=== PATIENT | female | born 1965 | race Caucasian/White ===

== ENCOUNTER 2019-10-12 14:37 | Outpatient (CLI) | payer BC, SELFPAY ==
--- NOTE | 2019-10-12 14:45 | ECHO_ITS ---
Patient Info Name: Sadie Wiseman Age: 54 years : 1965 Gender: Female Ht: 69 in Wt: 270 lbs BSA: 2.50 m2 HR: 80 bpm BP: 143 / 87 mmHg Technical Quality: Poor Exam Date: 10/12/2019 2:57 PM Exam Location: [facility] Patient Status: Outpatient Admit Date: 10/12/2019 Staff Ordering Physician: Neal Knapp DO Landing Support Specialist: Lucina Chavis RDCS Attending Provider: Neal Knapp DO Referring Physician: Ra SOARES; Exam Type: CA echo doppler color flow Study Info Indications Z87.74 - Personal history of (corrected) congenital malformations of heart and circulatory system Complete two-dimensional, color flow and Doppler transthoracic echocardiogram is performed with contrast to opacify the left ventrical and to improve the deliniation of the left ventrical endocarial boarders. Strain analysis performed. Contrast/Agitated Saline Amount: 10.00 ml IV Access Condition: patent with no signs of infiltration New IV Access: Right Site Condition: No extravasation, IV removed and Site dressing applied History/Risk Factors Hypertension: Yes Dyslipidemia: Yes Congenital Heart Disease (CHD): Yes Myocardial Infarction (TX): No Obesity: Yes Renal Disease: No Coronary Artery Disease (CAD) No Congestive Heart Failure (CHF): Hx CHF Date of Last Tobacco Use: 08/10/2014 Diabetes Mellitus: No COPD: On Meds Tobacco Use: Former Family History: Diabetes Mellitus, Coronary Artery Disease Deep Vein Thrombosis (DVT): Chronic Dialysis: None Frailty Scale (CSHA): 3: Managing Well Cardiac Arrest: No Prior Interventions Pacemaker: No PCI: No CABG: No ICD: No PV Intervention: None Heart Transplant: No Summary 1. Left ventricular chamber dimension is normal. 2. Definity contrast administered did not improve wall motion interpretation. 3. Left ventricular systolic function is normal, estimated at 60-65%. 4. There is moderately increased left ventricular wall thickness. 5. The left ventricular diastolic function is grade I diastolic dysfunction. 6. E/e' 11 is mildly elevated. 7. Left atrial chamber dimension is mildly enlarged. 8. Atrial septal defect occluder visualized by 2D and color flow imaging. No obvious interatrial shunt noted by color doppler. 9. There is moderate pulmonic regurgitation. 10. The aortic root size at the sinus of Valsalva is mildly dilated at 4.3 cm. Left Ventricle E/e' 11 is mildly elevated. Definity contrast administered did not improve wall motion interpretation. Left ventricular chamber dimension is normal. Left ventricular systolic function is normal, estimated at 60-65%. There is moderately increased left ventricular wall thickness. The left ventricular diastolic function is grade I diastolic dysfunction. Right Ventricle Right ventricular chamber dimension is normal. Right ventricular systolic function is normal. Left Atria Left atrial chamber dimension is mildly enlarged. Right Atria Right atrial chamber dimension is normal. Atrial Septum Atrial septal defect occluder visualized by 2D and color flow imaging. No obvious interatrial shunt noted by color doppler. Aortic Valve Cannot determine number of aortic valve leaflets. The aortic valve is not well visualized. There is no aortic valve stenosis. There is no aortic valve regurgitation. Pulmonic Valve There is moderate pulmonic regurgi
== END 2019-10-12 14:38 | disposition home or self-care (01) ==
LOC: CHSIMG 14:40
PROVIDERS: PCP Family Medicine; Visit Provider Internal Medicine Cardiovascular Disease
DX: Z87.74 Personal history of (corrected) congenital malformations of heart and circulatory system (principal)
CPT/HCPCS: C8929

== ENCOUNTER 2020-02-21 07:18 | Outpatient (CLI) | payer BC, SELFPAY ==
--- NOTE | ~2020-02-21 | PE_ITS ---
EXAMINATION: PET skull to mid thigh DATE: 02/21/2020 09:20 INDICATION: Solitary pulmonary nodule. TECHNIQUE: Blood glucose level was 94 mg/dL. 10.911 mCi of 18-fluorodeoxyglucose (18-FDG) was adminis tered i.v. Low dose computed tomography (CT) images were acquired from the base of the brain to the p roximal thighs for attenuation correction and anatomic localization. Automated exposure control was e mployed. Dose-length product (DLP) was 1279 mGy-cm. Positron emission tomography (PET) images were ac quired in the same distribution. COMPARISON: None FINDINGS: Head/neck: There is increased activity in the oral cavity, oropharynx, nasopharynx, and glottis witho ut CT correlate, likely physiologic. There are no pathologically enlarged lymph nodes. Chest: The lungs demonstrate mild atelectasis. No pleural effusion. Cardiomegaly is noted. There are coronary artery calcifications. No pericardial effusion. The central pulmonary arteries are enlarged, consistent with pulmonary arterial hypertension. There are no pathologically enlarged lymph nodes. Abdomen/pelvis/proximal thighs: The liver, gallbladder, spleen, pancreas, adrenal glands, and kidneys are normal. There are no dilated loops of bowel. There are no pathologically enlarged lymph nodes. T here is no free intraperitoneal fluid. There is no osseous malignancy. IMPRESSION: 1. No evidence of malignancy. Reviewed, dictated and finalized at location A.
[2020-02-21 07:51] LABS: Glucose Point of Care 94 (65-105)
== END 2020-02-21 07:19 | disposition home or self-care (01) ==
LOC: ANHIMG 07:19
PROVIDERS: PCP Family Medicine; Visit Provider Internal Medicine Critical Care Medicine
DX: R91.1 Solitary pulmonary nodule (principal)
CPT/HCPCS: 78815; A9552

== ENCOUNTER 2020-02-28 14:22 | Outpatient (CLI) | payer BC, SELFPAY ==
--- NOTE | 2020-03-01 15:02 | WPDPFTINT ---
PFT Interpretation PFT Interpretation: This PFT met all criteria for ATS standards and reproducibility FEV/FVC post bronchodilator 69% of predicted FEV1 70% or 1.83 liters FVC 75% or 2.66 liters FEV1 improved by 13% and 210 ml post bronchodilator TLC 83% or 4.86 liters RV 92% RV/TLC43% DLCO 60% when adjusted for alveolar volume but not adjusted for hemoglobin Flow volume loops showed significant expiratory coving Impression: Moderate airflow obstruction with good response to bronchodilator. Mild decreased diffusion capcity. This pattern fits that of COPD with possible Asthma component. Clinical correlation is advised.
== END 2020-02-28 14:23 | disposition home or self-care (01) ==
PROVIDERS: PCP Family Medicine; Visit Provider Internal Medicine Critical Care Medicine
DX: J44.9 Chronic obstructive pulmonary disease, unspecified (principal)
CPT/HCPCS: 94060; 94726; 94729

== ENCOUNTER 2020-05-17 12:51 | Outpatient (CLI) | payer BC, SELFPAY ==
--- NOTE | 2020-06-19 17:19 | WPDHOLTEREM ---
Holter/Event Monitor Holter/Event Monitor Date of procedure: 05/17/20 Procedure Type: 27 days event monitor Indications: PAF Conclusion: 1. 27 days event monitor between 05/17/20-06/15/20. There are 17 available transmissions for analysis. 2. Underlying rhythm is sinus rhythm. HR range 50-120 bpm; average HR 66 bpm. 3. There are occasional premature supraventricular complexes with total burden of 1%. No supraventricular tachycardia. 4. There are occasional premature ventricular complexes with total burden of 1%. No ventricular tachycardia. 5. No significant pauses greater than 2 seconds. 6. Patient reports 7 episodes of symptoms of lightheadedness, dizziness, shortness of breath, and symptoms other than listed which demonstrate sinus rhythm, HR range 57-75 bpm and 1 PAC and 1 PVC.
== END 2020-05-17 12:52 | disposition home or self-care (01) ==
LOC: CHSCARD 12:54
PROVIDERS: PCP Family Medicine; Visit Provider Internal Medicine Cardiovascular Disease
DX: I48.0 Paroxysmal atrial fibrillation (principal)
CPT/HCPCS: 93270

== ENCOUNTER 2020-10-01 16:09 | Outpatient (CLI) | payer BC, SELFPAY ==
--- NOTE | ~2020-10-01 | CT_ITS ---
EXAMINATION:CT diagnostic chest wo con DATE: 10/01/2020 16:32 INDICATION: Solitary pulmonary nodule. TECHNIQUE: Computed tomography (CT) of the chest was performed without intravenous contrast. Automate d exposure control and iterative reconstruction technique were employed. The dose-length product (DLP ) was 589.68 mGy-cm. COMPARISON: PET CT 02/21/2020 FINDINGS: There is mild emphysema. There is mild atelectasis bilaterally. There is a 5 mm nodule in r ight lower lobe. There is a 4 mm nodule in left lower lobe. No pleural effusion. Cardiomegaly is note d. There is an interatrial closure device. There are coronary artery calcifications. No pericardial e ffusion. The central pulmonary arteries are enlarged, consistent with pulmonary arterial hypertension . There is a 14 mm mass in left adrenal gland measuring low-attenuation, consistent with an adenoma. There is mild thoracic spondylosis. IMPRESSION: 1. Pulmonary nodules measuring up to 5 mm, likely benign. 2. Mild emphysema. 3. Cardiomegaly. Reviewed, dictated and finalized at location A. ITOMETER READER
== END 2020-10-01 16:10 | disposition home or self-care (01) ==
PROVIDERS: PCP Family Medicine; Visit Provider Internal Medicine Critical Care Medicine
DX: R91.1 Solitary pulmonary nodule (principal); J43.9 Emphysema, unspecified; I51.7 Cardiomegaly; R91.8 Other nonspecific abnormal finding of lung field
CPT/HCPCS: 71250

== ENCOUNTER 2022-08-07 08:15 | Outpatient (CLI) | payer BC, SELFPAY ==
--- NOTE | ~2022-08-07 | CT_ITS ---
EXAMINATION: CT diagnostic chest wo con DATE: 08/07/2022 08:31 INDICATION: Pulmonary nodules TECHNIQUE: Computed tomography (CT) of the chest was performed without intravenous contrast. The dose -length product (DLP) was 439.63 mGy-cm. Automated exposure control and iterative reconstruction tech [employer] were employed. COMPARISON: 10/01/2020, 02/21/2020 FINDINGS: There is a stable 5 mm nodule of the right lower lobe. There is stable 4 mm nodule of the l eft lower lobe. There is a new 3.2 x 1.9 cm nonsolid nodule in the medial aspect of the right lower l obe (image 100). No internal solid component is identified. There is mild emphysema. No pleural effus ion or pneumothorax. There is enlargement of the main and central pulmonary arteries, consistent with pulmonary hypertension. No pathologically enlarged thoracic lymph nodes are identified. Cardiomegaly is noted. An intra-atrial closure device is noted. There is calcified coronary artery atherosclerosi s. Subendocardial fat deposition in the left ventricular apex and interventricular septum is consiste nt with prior myocardial infarction. A stable 14 mm mass of the left adrenal gland is consistent with an adenoma. There is mild thoracic spondylosis. IMPRESSION: 1. Stable solid pulmonary nodules, likely benign. 2. Interval development of a non solid nodule of the right lower lobe. Follow-up low-dose CT in six m [facility] is recommended. Reviewed, dictated and finalized at location D. NG FLUID TENDER IMPRESSION: 1. Stable solid pulmonary nodules, likely benign. 2. Interval development of a non solid nodule of the right lower lobe. Follow-u p low-dose CT in six months is recommended.
== END 2022-08-07 08:16 | disposition home or self-care (01) ==
PROVIDERS: PCP Family Medicine; Visit Provider Physician Assistant
DX: R91.8 Other nonspecific abnormal finding of lung field (principal)
CPT/HCPCS: 71250

== ENCOUNTER 2023-02-05 09:23 | Outpatient (CLI) | payer MEDICARE, SELFPAY ==
--- NOTE | ~2023-02-05 | CT_ITS ---
CT Scan of the Chest without Contrast: Clinical Indication: Pulmonary nodules Technique: Contiguous sections were acquired throughout the chest without intravenous contrast. Dose reduction technique was used on this scan by utilizing automated exposure control and iterative recon struction technique. The dose-length product (DLP) was 363.91 mGy-cm. COMPARISON: 08/07/2022 and 10/01/2020 Findings: There is no evidence of any significant mediastinal, hilar or axillary lymphadenopathy. Main pulmonar y artery measures 4.5 cm in diameter. Coronary artery calcifications are present. No aortic aneurysm. There is no evidence of pleural or pericardial effusion. There is probable chronic right middle lobe atelectasis or scarring. Subpleural subcentimeter right l ower lobe pulmonary nodule is unchanged. There is atelectatic change or scarring at the lingula. Images through the upper abdomen reveal no abnormalities. Impression: Chronic atelectasis or scarring at the right middle lobe and lingula. Stable subcentimeter right middle lobe pulmonary nodule. Previously noted groundglass opacity at the medial right lung base is resolved. Reviewed, dictated and finalized at [facility]. Impression: Chronic atelectasis or scarring at the right middle lobe and lingula. Stable subcentimeter right middle lobe pulmonary nodule. Previously noted groundglass opacity at the medial right lung base is resolved.
== END 2023-02-05 09:24 | disposition home or self-care (01) ==
PROVIDERS: PCP Family Medicine; Visit Provider Physician Assistant
DX: R91.8 Other nonspecific abnormal finding of lung field (principal)
CPT/HCPCS: 71250

== ENCOUNTER 2024-01-23 07:59 | Outpatient (CLI) | payer OTHER, SELFPAY ==
--- NOTE | ~2024-01-23 | CT_ITS ---
EXAMINATION:CT lung screening DATE: 01/23/2024 09:21 INDICATION: Personal history of nicotine dependence. Smoker who quit 9 years ago with 45 pack year hi story. TECHNIQUE: Computed tomography (CT) of the chest was performed without intravenous contrast. Automate d exposure control and iterative reconstruction technique were employed. The dose-length product (DLP ) was 481.42 mGy-cm. COMPARISON: Chest CT 02/05/2023 FINDINGS: The lungs demonstrate mild atelectasis. There is a 3 mm nodule in right lower lobe. There i s a 3 mm nodule in left upper lobe. There is a stable 4 mm nodule in left lower lobe. No pleural effu césar. Cardiomegaly is noted. There is an interatrial closure device. There are coronary artery calcif ications. No pericardial effusion. The central pulmonary arteries are enlarged, consistent with pulmo nary arterial hypertension. There is a 15 mm mass in left adrenal gland measuring soft tissue attenua tion without change, likely an adenoma. There is mild chronic anterior wedging of multiple vertebral bodies. There is mild thoracic spondylosis. IMPRESSION: 1. Lung-RADS category 2: Benign appearance or behavior. Continue annual screening with noncontrast lo w-dose chest CT in 12 months. Reviewed, dictated and finalized at location E. IMPRESSION: 1. Lung-RADS category 2: Benign appearance or behavior. Continue annual screeni ng with noncontrast low-dose chest CT in 12 months.
[2024-01-23 08:52] LABS: Alanine Aminotransferase 25 U/L (6-35); Albumin Level 4.4 g/dL (3.5-5.1); Alkaline Phosphatase 83 U/L (38-126); Anion Gap 8 mmol/L (4-12); Aspartate Amino Transferase 37 U/L (14-36); Bilirubin,Total 1.2 mg/dL (0.2-1.3); Blood Urea Nitrogen 11 mg/dL (7-17); Calcium 9.3 mg/dL (8.4-10.2); Carbon Dioxide 29 mmol/L (22-30); Chloride 104 mmol/L (98-107); Cholesterol 174 mg/dL (0-200); Estimated Glomerular Filt Rate 57; Glucose 103 mg/dL (65-110); HDL Direct 49 mg/dL; Potassium 4.3 mmol/L (3.4-5.0); Sodium 141 mmol/L (137-145); Triglycerides 221 mg/dL (<150)
[2024-01-23 09:03] LABS: LDL Cholesterol Direct 82 mg/dL
== END 2024-01-23 08:00 | disposition home or self-care (01) ==
LOC: ANHIMG 08:03
PROVIDERS: PCP Emergency Medicine; Visit Provider Physician Assistant
DX: Z12.2 Encounter for screening for malignant neoplasm of respiratory organs (principal); Z87.891 Personal history of nicotine dependence; E78.5 Hyperlipidemia, unspecified; I10 Essential (primary) hypertension; F32.9 Major depressive disorder, single episode, unspecified
CPT/HCPCS: 36415; 71271; 80053; 80061; 84443

== ENCOUNTER 2024-01-23 10:21 | Outpatient (CLI) | payer OTHER, SELFPAY ==
--- NOTE | ~2024-01-23 | MM_ITS ---
EXAMINATION: MM screening dominic BI w kaylah HISTORY: Screening TECHNIQUE: Craniocaudal and mediolateral oblique 3-D tomosynthesis images were obtained and synthetic 2-D images were generated. CAD analysis was submitted and interpreted. COMPARISON: No prior mammogram is available for comparison at this institution. BREAST PARENCHYMAL COMPOSITION: Not dense: There are scattered areas of fibroglandular density. FINDINGS: There is no evidence of suspicious mass, calcification, or architectural distortion to sugg est malignancy in either breast. There has been no suspicious interval change. IMPRESSION: 1. No mammographic evidence of malignancy. 2. Recommend routine screening mammography in one year. BI-RADS Category 1: Negative Reviewed, dictated and finalized at location B.
== END 2024-01-23 10:22 | disposition home or self-care (01) ==
LOC: ANHIMG 10:22
PROVIDERS: PCP Emergency Medicine; Visit Provider Emergency Medicine
DX: Z12.31 Encounter for screening mammogram for malignant neoplasm of breast (principal)
CPT/HCPCS: 77063; 77067

== ENCOUNTER 2025-02-02 15:00 | Outpatient (CLI) | payer MEDICARE, SELFPAY ==
--- NOTE | ~2025-02-02 | CT_ITS ---
CT Scan of the Chest without Contrast: Clinical Indication: Lung cancer screening, nicotine dependence Technique: Contiguous sections were acquired throughout the chest without intravenous contrast. Dose reduction technique was used on this scan by utilizing automated exposure control and iterative recon struction technique. The dose-length product (DLP) was 343.83 mGy-cm. COMPARISON: 01/23/2024 Findings: There is no evidence of any significant mediastinal, hilar or axillary lymphadenopathy. Main pulmonar y artery dilated to 4.6 cm in diameter. Coronary artery calcifications are present. There is no evidence of pleural or pericardial effusion. Stable 3 mm basilar pulmonary nodule. There is mild bibasilar atelectatic change or scarring. Images through the upper abdomen reveal stable left adrenal adenoma. Impression: Lung RADS 2: Benign appearance. 12 month follow-up screening CT advised. Probable pulmonary artery hypertension. Reviewed, dictated and finalized at [facility]. Impression: Lung RADS 2: Benign appearance. 12 month follow-up screening CT advised. Probable pulmonary artery hypertension.
== END 2025-02-02 15:01 | disposition home or self-care (01) ==
PROVIDERS: PCP Family Medicine; Visit Provider Physician Assistant
DX: Z12.2 Encounter for screening for malignant neoplasm of respiratory organs (principal); Z87.891 Personal history of nicotine dependence
CPT/HCPCS: 71271

== ENCOUNTER 2025-03-07 14:41 | Outpatient (CLI) | payer MEDICARE, SELFPAY ==
--- NOTE | 2025-03-07 14:46 | ECHO_ITS ---
Patient Info Name: Sadie Wiseman Age: 59 years : 1965 Gender: Female Ht: 69 in Wt: 250 lbs BSA: 2.40 m2 HR: 64 bpm BP: 143 / 93 mmHg Heart Rhythm: Sinus Rhythm Technical Quality: Fair Exam Date: 03/07/2025 2:51 PM Patient Status: O Admit Date: 03/07/2025 Exam Type: CA echo doppler color flow Complete two-dimensional, color flow and Doppler transthoracic echocardiogram is performed. Golf Starter And Ranger: Nathalia Ortiz Attending Provider: Johanna ABREU Summary 1. Complete two-dimensional, color flow and Doppler transthoracic echocardiogram is performed. 2. Left ventricular chamber dimension is normal. 3. Left ventricular systolic function is normal, estimated at 60-65. 4. There is mild concentric increased left ventricular wall thickness. 5. The left ventricular diastolic function is grade I diastolic dysfunction. 6. E/e' 12 is mildly elevated. 7. Left atrial chamber dimension is moderately enlarged. 8. Right atrial chamber dimension is mildly enlarged. 9. There is trace tricuspid valve regurgitation. 10. No pulmonary hypertension, estimated pulmonary arterial systolic pressure is 22 mmHg. Left Ventricle E/e' 12 is mildly elevated. Left ventricular chamber dimension is normal. Left ventricular systolic function is normal, estimated at 60-65. There is mild concentric increased left ventricular wall thickness. The left ventricular diastolic function is grade I diastolic dysfunction. Right Ventricle Right ventricular chamber dimension is normal. Right ventricular systolic function is normal and with normal TAPSE 3.0 cm. Left Atria Left atrial chamber dimension is moderately enlarged. Right Atria Right atrial chamber dimension is mildly enlarged. Aortic Valve The aortic valve is trileaflet. There is no aortic valve stenosis. There is no aortic valve regurgitation. Pulmonic Valve There is no pulmonic regurgitation. Mitral Valve There is no mitral valve stenosis. There is no mitral valve regurgitation. Tricuspid Valve There is trace tricuspid valve regurgitation. No pulmonary hypertension, estimated pulmonary arterial systolic pressure is 22 mmHg. Pericardium/Pleural There is no pericardial effusion. Inferior Vena Cava Normal inferior vena cava with >50% collapse upon inspiration consistent with normal right atrial pressure, 5 mmHg. Aorta The aortic root size at the sinus of Valsalva is normal. Left Ventricular Outflow Tract Name Value Normal LVOT 2D LVOT Diameter 2.1 cm LVOT Doppler LVOT Peak Velocity 102 cm/s LVOT Peak Gradient 4 mmHg LVOT Mean Gradient 2 mmHg LVOT VTI 21 cm LVOT VTI/AV VTI Ratio 0.8 LVOT Stroke Volume 73 ml LVOT CO 4.7 l/min LVOT CI 2.0 l/min/m2 Pulmonic Valve Name Value Normal RVOT Doppler RVOT Peak Velocity 63 cm/s RVOT Peak Gradient 2 mmHg PV Doppler PV Peak Velocity 94 cm/s PV Peak Gradient 4 mmHg Mitral Valve Name Value Normal MV Diastolic Function MV E Peak Velocity 74 cm/s MV A Peak Velocity 93 cm/s MV E/A 0.8 MV Decel Time (PW) 251 ms MV Annular TDI MV E/e' (Septal) 17.6 MV E/e' (Lateral) 9.2 MV E/e' (Average) 13.4 Tricuspid Valve Name Value Normal TV Regurgitation Doppler TR Peak Velocity 206 cm/s TR Peak Gradient 17 mmHg Estimated PAP/RSVP RA Pressure 5 mmHg <=5 PA Systolic Pressure 22 mmHg <36 RV Systolic Pressure 22 mmHg <36 TV Annular TDI TV Lateral Manuela s' Velocity 13.7 cm/s >=9.5 Aorta Name Value Normal Ascending Aorta Ao Root Diameter (MM) 3.6 cm Ao Root Diam Index (MM) 1.5 cm/m2 Aortic Valve Name Value Normal AV Doppler AV Peak Velocity 125 cm/s AV Peak Gradient 6 mmHg AV Mean Gradient 4 mmHg AV VTI 28 cm AV Area (Cont Eq VTI) 2.6 cm2 >=3.0 AV Area (Cont Eq Salvador) 2.8 cm2 AV DI (Salvador) 0.82 AV Regurgitation 2D LVOT Area 3.5 cm2 Ventricles Name Value Normal LV Dimensions 2D/MM IVS Diastolic Thickness (2D) 1.3 cm 0.6-1.0 LVID Diastole (2D) 4.8 cm 3.8-5.2 LVIW Diastolic Thickness (2D) 1.1 cm 0.6-0.9 LVID Systole (2D) 3.4 cm 2.2-3.5 LVOT Diameter 2.1 cm LV Mass (2D Cubed) 221.47 g 67.00-162.00 LV Mass Index (2D Cubed) 92 g/m2 43-95 Relative Wall Thickness (2D) 0.44 <=0.42 LV Fractional Shortening/Ejection Fraction 2D/MM LV Fractional Shortening (2D) 29 % 27-45 LV EF (2D Teichjazmyne) 55 % LV Diastolic Volume (4C MOD) 82 ml LV EF (4C MOD) 72 % LV Diastolic Volume (2C MOD) 109 ml LV EF (2C MOD) 76 % LV Diastolic Volume (BP MOD) 96 ml 46-106 LV Diastolic Volume Index (BP MOD) 40 ml/m2 29-61 LV Systolic Volume (BP MOD) 25 ml 14-42 LV Systolic Volume Index (BP MOD) 11 ml/m2 8-24 LV EF (BP MOD) 74 % 54-74 LV Diastolic Length (4C) 8.1 cm LV Systolic Length (4C) 6.4 cm LV Stroke Volume (4C MOD) 59 ml Atria Name Value Normal LA Dimensions LA Dimension (MM) 5.8 cm 2.7-3.8 LA Volume (4C A-L) 100 ml LA Volume (BP A-L) 100 ml RA Dimensions RA Systolic Major [place] Length (4C) 6.7 cm 2.2-2.8 RA Area (4C) 23.3 cm2 <=18.0 Report Signatures
--- OUTSIDE RECORDS SUMMARY | 2025-03-07 14:47 | XMS_ITS | Encounter Summary ---
Author Organization [facility] Address [address] [place] [address] Care Team Providers Care Stock Or Delivery Clerk Name Role Phone Jean Tinoco MD Unavailable Madhu Kim MD Primary Care Provider Edil Shah MD Unavailable [phone] Esteban Gallo MD Unavailable [phone] Neal Knapp DO Unavailable Stefan Delgado MD Primary Care Provider Encounter Details Date Type Department Care Team (Late st Contact Info) Description 10/03/2021 [employer] Technologiest Message Enc [facility] [address], [address] [place] [address] Kim Delgado, [facility] [address] [place] [place] [address] Visit Follow Up Social History Tobacco Use Types Packs/Day Years Used Date Smoking Tobacco: Former Cigarettes 1 35 1 08/25/1979 - 06/25/2015 Smokeless Tobacco: Never Alcohol Use Standard Drinks/Week Comments No 0 (1 standard drink = 0.6 oz pur e alcohol) Comments No Sex and Gender Information Value Date Recorded Sex Assigned at Female 09/13/2024 9:42 AM CONTINUOUS IMPROVEMENT DIRECTOR Legal Sex Female 5:59 PM CDT Gender Identity Not on file Sexual Orientation Not on file Occupation Industry Job Start Date Job End Date Disability Not on file Not on file Not on file Not on file Not on file Not on file Not on file COVID-19 Exposure Response Date Recorded In the last 10 days, have yo u been in contact with someone who was confirmed or suspected to have Coronavirus/COVID-19? No / Unsure 10/02/2021 9:37 AM CONTINUOUS IMPROVEMENT DIRECTOR documented as of this encounter Plan of Treatment Not on file documented as of this encounter Visit Diagnoses Not on filedocumented in this encounter Additional Health Concerns Infection Onset Date Last Indicated Resolved Time COVID-19 Rule Out 11/22/2021 11/22/2021 11/22/2021 7:13 PM CDT COVID-19 Rule Out 04/21/2022 04/21/2022 04/21/2022 11:06 AM CDT documented as of this encounter Care Teams Stock Or Delivery Clerk Relationship Specialty Start Date End Date Madhu Kim MD [address] [place] [phone] PCP - General FAMILY PRACTICE 06/30/16 10/30/21 Stefan Delgado MD [address] [place] [phone] PCP - General FAMILY PRACTICE 10/31/21 Jean Tinoco MD [place] [employer]ws Software Development Engineer CARDIOVASCULAR DISEASE 06/30/16 10/30/21 Edil Shah MD [address] [place], [place] [phone] PULMONARY DISEASE 10/22/16 10/30/21 Esteban Gallo MD [address] [place] [address] EP [employer]ws Software Development Engineer CARDIAC ELECTROPHYSIOLOGY 04/06/1910/09 Neal Knapp DO [address] [place] [address] INTERNAL MEDICINE 10/31/21 documented as of this encounter
--- OUTSIDE RECORDS SUMMARY | 2025-03-07 14:47 | XMS_ITS | Encounter Summary ---
Author Organization [facility] Address [address] [place] [address] Care Team Providers Care Night Auditor Name Role Phone Jean Tinoco MD Unavailable Madhu Kim MD Primary Care Provider [phone] Edil Shah MD Unavailable [phone] Esteban Gallo MD Unavailable [phone] Neal Knapp DO Unavailable Stefan Delgado MD Primary Care Provider Encounter Details Date Type Department Care Team (Late st Contact Info) Description 01/15/2019 Abstract [facility] CONVERSION [address] [place] [address] , Generic Conversion, Social History Tobacco Use Types Packs/Day Years Used Date Smoking Tobacco: Former Cigarettes Q uit: 06/25/2015 Smokeless Tobacco: Never Alcohol Use Standard Drinks/Week Comments No 0 (1 standard drink = 0.6 oz pur e alcohol) Comments Unknown Sex and Gender Information Value Date Recorded Sex Assigned at Female 09/13/2024 9:42 AM PERINATAL NURSE Legal Sex Female 5:59 PM CDT Gender Identity Not on file Sexual Orientation Not on file Occupation Industry Job Start Date Job End Date Disability Not on file Not on file Not on file documented as of this encounter Plan of Treatment Not on file documented as of this encounter Visit Diagnoses Not on filedocumented in this encounter Additional Health Concerns Infection Onset Date Last Indicated Resolved Time COVID-19 Rule Out 07/11/2020 07/11/2020 07/12/2020 8:12 AM PERINATAL NURSE COVID-19 Rule Out 11/22/2021 11/22/2021 11/22/2021 7:13 PM CDT COVID-19 Rule Out 04/21/2022 04/21/2022 04/21/2022 11:06 AM CDT documented as of this encounter Care Teams Night Auditor Relationship Specialty Start Date End Date Madhu Kim MD [address] [place] [phone] PCP - General FAMILY PRACTICE 06/30/16 10/30/21 Stefan Delgado MD [address] [place], [place] [phone] PCP - General FAMILY PRACTICE 10/31/21 Jean Tinoco MD [place] Roving Weight Gauger CARDIOVASCULAR DISEASE 06/30/16 10/30/21 Edil Shah MD [address] [place] [phone] PULMONARY DISEASE 10/22/16 10/30/21 Esteban Gallo MD [address] [place] [phone] EP Roving Weight Gauger CARDIAC ELECTROPHYSIOLOGY 04/06/1910/09 Neal Knapp DO [address] [facility] [address] [place] [address] INTERNAL MEDICINE 10/31/21 documented as of this encounter
--- OUTSIDE RECORDS SUMMARY | 2025-03-07 14:48 | XMS_ITS | Clinical Summary ---
Author Organization [facility] Address [address] [place] [address] Care Team Providers Care Netsuite Consultant Name Role Phone Neal Knapp Monty DO Unavailable Stefan Delgado MD Primary Care Provider Allergies No known active allergies Medications atorvastatin 20 MG tablet Take 1 tablet (20 mg total) by mouth nightly at bedtime. Active buPROPion 24 hr 300 MG 24 hr tablet Take 1 tablet (300 mg total) by mouth daily. Active albuterol (2.5 MG/3ML) 0.083% nebulizer solution Take 3 mLs (2.5 mg total) by nebulization every 2 (two) hours as needed for Wheezing. Active lorazepam 1 MG tablet Take 1 tablet (1 mg total) by mouth nightly at bedtime. Active hydrOXYzine 25 MG tablet Take 1 tablet (25 mg total) by mouth 3 (three) times daily. Active sertraline 100 MG tablet Take 1 tablet (100 mg total) by mouth daily. 1 8 Active metoprolol succinate ER 25 MG 24 hr tablet Take 1 tablet (25 mg total) by mouth daily. 90 tablet 3 9 Active losartan 25 MG tablet Take 0.5 tablets (12.5 mg total) by mouth daily. 45 tablet 3 0 Active buPROPion SR 150 MG 12 hr tablet Take 1 tablet (150 mg total) by mouth daily. Along with Bupropion 300mg daily Active QUEtiapine 100 MG tablet Take 1 tablet (100 mg total) by mouth daily. 2 Active ADVAIR DISKUS 500-50 MCG/ACT inhaler Inhale 1 puff into the lungs 2 (two) times daily. 3 Active zolpidem (AMBIEN) 10 MG tablet Take 1 tablet (10 mg total) by mouth nightly. 2 Active Active Problems Problem Noted Date Diagnosed Date History of arthroplasty of left knee 11/02/2022 History of arthroplasty of right knee 12/09/2021 Closed nondisplaced longitud inal fracture of left patella, initial encounter 04/29/2019 Supraventricular tachycardia ([facility]) 9 Panlobular emphysema ([facility]) 6 PFO (patent foramen ovale) ([facility]) Chronic pulmonary heart dise ase, unspecified ([facility]) HTN (hypertension) Hyperlipidemia Right-sided heart failure ([facility]) Resolved Problems Problem Noted Date Diagnosed Date Resolved Date Contusion of right knee, subsequent encounter 07/16/20 22 11/02/2022 Contusion of left knee, subsequent encounter 2 11/02/2022 Follow-up examination after orthopedic surgery 05/05/2022 05/04/2023 Status post total right knee replacement 11/25/2021 11/02/2022 Primary osteoarthritis of right knee 10/03/2021 11/02/2022 Primary osteoarthritis of left knee 12/12/2020 11/02/2022 Traumatic hematoma of knee, left, subsequent encounter 04/29/2019 11/02/2022 Immunizations Immunization Administration Dates Next Due Influenza Adult (Generic) 05/10/2019 Family History Medical History Relation Comments Lung Cancer Father Aneurysm Maternal Grandfather Heart Disease Maternal Grandmother Aneurysm Mother Dementia Paternal Grandfather No Known Problems Paternal Grandmother Relation Status Comments Brother 1 Alive Brother 2 Alive Father Alive Maternal Grandfather Maternal Grandmother Mother Paternal Grandfather Paternal Grandmother Social History Tobacco Use Types Packs/Day Years Used Date Smoking Tobacco: Former Cigarettes 1 35 1 08/25/1979 - 06/25/2015 Smokeless Tobacco: Never Tobacco Cessation:Counseling Given: Not Answered Alcohol Use Standard Drinks/Week Comments No 0 (1 standard drink = 0.6 oz pur e alcohol) Comments No Sex and Gender Information Value Date Recorded Sex Assigned at Female 09/13/2024 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 Sex Female 5:59 PM CDT Gender Identity Not on file Sexual Orientation Not on file Occupation Industry Job Start Date Job End Date Disability Not on file Not on file Not on file Not on file Not on file Not on file Not on file Last Filed Vital Signs Vital Sign Reading Time Taken Comments Blood Pressure 135/69 04/22/2022 11:27 AM CDT Pulse 59 04/22/2022 11:27 AM CDT Temperature 36.3 C (97.3 F) 04/22/2022 11:27 AM CDT Respiratory Rate 20 04/22/2022 11:27 AM CDT Oxygen Saturation 94% 04/22/2022 11:27 AM CDT Inhaled Oxygen Concentration - - Weight 120.2 kg (265 lb) 04/30/2023 8:30 AM CDT Height 175.3 cm (5' 9) 04/30/2023 8:30 AM CDT Body Mass Index 39.13 04/30/2023 8:30 AM CDT Plan of Treatment Health Maintenance Due Date Last Done Comments Colorectal Cancer Screening Colonoscopy (10 Years) 1965 Annual Physical 1968 Hepatitis C 1983 Pneumococcal Vaccine: 50+ Years (1 of 2 - PCV) 1984 Mammogram Screening 2005 Zoster Vaccines (1 of 2) 2015 COVID-19 Vaccine (4 - 2023-2 5 season) 2024 06/29/2021, 11/09/2020, 10/12/2020 DTaP, Tdap and Td Vaccines ( 3 - Td or Tdap) 04/21/2028 04/21/2018, 06/19/2017 Meningococcal B Vaccine Aged Out No l onger eligible based on patient's age to complete this topic Meningococcal Vaccine Aged Out No he kristin eligible based on patient's age to complete this topic RSV Immunizations Under 20 Months Aged Out No longer eligible b ased on patient's age to complete this topic Goals Goal Patient Goal Type Associated Problems Recent Progress Patient-Stated? Author Safety Patient/family will have appropriate support at home upon discharge General No Shaylee Blas, [place] Medical Devices Implanted Type Area Special Deputy Sheriff Device Identifier Shelf Expiration Date Model / Serial / Lot Cement Simplex Hv W/Gentamicin - [id number] Implanted:Qty : 1 on 04/21/2022 by Ryder Moreno MD at [facility] Cement Implant Right: Knee [employer] DIV VIRA NGA 05/09/2024 6193-001 / / [id number] Cement Simplex Hv W/Gentamicin - [id number] Implanted:Qty : 1 on 04/21/2022 by Ryder Moreno MD at [facility] Cement Implant Right: Knee [employer]IR[employer] NGA 05/09/2024 [id number] / / [id number] Component Ptlr 32mm Medialize Dome Attune - [id number] Implanted:Qty : 1 on 11/25/2021 by Ryder Moreno MD at [facility] Patella Left: Knee [employer] [id number] 07/09/2026 [id number] / / [id number] Dome Attune Patella Medialized Cemented 35mm Aox - [id number] Implanted:Qty : 1 on 04/21/2022 by Ryder Moreno MD at [facility] Patella Right: Knee [employer] [place] [id number] 12/07/2026 1518-20-035 / / [id number] Depuy Cmw 2 Gentamicin Bone Cement Implanted:Qty : 1 on 11/25/2021 by Ryder Moreno MD at [facility] Left: Knee 05/09/2022 [id number] / / [id number] Attune Femoral Porocoat Cruciate Retaining Implanted:Qty : 1 on 11/25/2021 by Ryder Morneo MD at [facility] Left: Knee [id number] 10/07/2030 [id number] / / [id number] Attune Tibal Base Porocoat Rotating Platofrm Implanted:Qty : 1 on 11/25/2021 by Ryder Moreno MD at [facility] Left: Knee 05/09/2031 [id number] / / [id number] Attune Tibal Insert Rotating Platform Cruciate Retaining Implanted:Qty : 1 on 11/25/2021 by Ryder Moreno MD at [facility] Left: Knee 07/09/2024 [id number] / / [id number] Attune Femoral Cruciate Retainging Narrow Implanted:Qty : 1 on 04/21/2022 by Ryder Moreno MD at [facility] Right: Knee [employer] 01/08/2032 1504-00-225 / / [id number] Attune Knee System Revision Tibial Base Fixed Bearing Implanted:Qty : 1 on 04/21/2022 by Ryder Moreno MD at [facility] Right: Knee [employer] [id number] 12/08/2031 1506-40-006 / / [id number] Attune Knee System Revision Cemented Stem Implanted:Qty : 1 on 04/21/2022 by Ryder Moreno MD at [facility] Right: Knee [employer] 08/09/2030 1512-14-050 / / [id number] Attune Knee System Tibial Instert Fixed Bearing Cruciate Retaining Implanted:Qty : 1 on 04/21/2022 by Ryder Moreno MD at [facility] Right: Knee [employer] 12/07/2026 1516-20-508 / / [id number] Explanted Type Area Special Deputy Sheriff Device Identifier Shelf Expiration Date Model / Serial / Lot Drill Bit Synthes 2.5 Qc 110mm Gold - [id number] Explanted:Qty: 1 on 11/25/2021 at [facility] Drill Left: Knee SYNTHES 310.25 / / Insurance MEDICARE [facility] Advance Directives Documents on File Type Date Recorded Patient Upholsterer Outside Expl anation Advance Directives and Living Will 11/26/2021 7:33 AM 06/10/2015 POLST Advance Directives and Living Will 10/24/2017 ADVANCE DIRECTIVE Advance Directives and Living Will 10/24/2017 ADVANCE DIRECTIVE Advance Directives and Living Will 06/20/2016 ADVANCE DIRECTIVE Advance Directives and Living Will 06/25/2015 ADVANCE DIRECTIVE Care Teams Netsuite Consultant Relationship Specialty Start Date End Date Stefan Delgado MD [address] [place] [phone] PCP - General FAMILY PRACTICE 10/31/21 Neal Knapp DO [address] [facility] [address] [place] [address] INTERNAL MEDICINE 10/31/21
--- OUTSIDE RECORDS SUMMARY | 2025-03-07 14:48 | XMS_ITS | Encounter Summary ---
Author Organization [facility] Address [address] [place] [address] Care Team Providers Care Hall Porter Name Role Phone Jean Tinoco MD Unavailable Madhu Kim MD Primary Care Provider [phone] Edil Shah MD Unavailable [phone] Esteban Gallo MD Unavailable [phone] Neal Knapp DO Unavailable Stefan Delgado MD Primary Care Provider [phone] Encounter Details Date Type Department Care Team (Late st Contact Info) Description 10/24/2017 Abstract [facility] CONVERSION [address] [place] [address] , Generic Conversion, Social History Tobacco Use Types Packs/Day Years Used Date Smoking Tobacco: Former Cigarettes Q uit: 06/25/2015 Alcohol Use Standard Drinks/Week Comments No 0 (1 standard drink = 0.6 oz pur e alcohol) Comments Unknown Sex and Gender Information Value Date Recorded Sex Assigned at Female 09/13/2024 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 Legal Sex Female 5:59 PM CDT Gender [...] Indicated Resolved Time COVID-19 Rule Out 07/11/2020 07/11/202007/1207/12/2020 8:12 AM ROD DRAWER COVID-19 Rule Out 11/22/2021 11/22/2021 11/22/2021 7:13 PM CDT COVID-19 Rule Out 04/21/2022 04/21/2022 04/21/2022 11:06 AM CDT documented as of this encounter Care Teams Hall Porter Relationship Specialty Start Date End Date Madhu Kim MD [address] [place] [phone] PCP - General FAMILY PRACTICE 06/30/16 10/30/21 Stefan Delgado MD [address] [place] [phone] PCP - General FAMILY PRACTICE 10/31/21 Jean Tinoco MD [employer] CARDIOVASCULAR DISEASE 06/30/16 10/30/21 Edil Shah MD [address] [place] [phone] PULMONARY DISEASE 10/22/16 10/30/21 Esteban Gallo MD [address] [place] [phone] [employer] CARDIAC ELECTROPHYSIOLOGY 04/06/1910/09 Neal Knapp DO [address] [place] [address] INTERNAL MEDICINE 10/31/21 documented as of this encounter
--- OUTSIDE RECORDS SUMMARY | 2025-03-07 14:48 | XMS_ITS | Encounter Summary ---
Author Organization [facility] Address [address] [place] [address] Care Team Providers Care Presentation Designer Name Role Phone Neal Knapp DO Unavailable Stefan Delgado MD Primary Care Provider Encounter Details Date Type Department Care Team (Late st Contact Info) Description 04/30/2023 [employer] Message Enc [facility] [address] [place] [address] Kim Delgado, 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 Answer Date of Assessment Author Status No 04/21/2022 5:06 PM CDT Activ e * Do you have serious difficulty walking or climbing stairs? Answer Date of Assessment Author Status Yes 04/21/2022 5:06 PM ELYT Carmen Vega RN Active * Do you have difficulty dressing or bathing? Answer Date of Assessment Author Status Yes 04/21/2022 5:06 PM Carmen Mark RN Active * Because of a physical, mental, or emotional condition, do you have difficulty doing errands alone such as visiting a doctor's office or shopping? Answer Date of Assessment Author Status Yes 04/21/2022 5:06 PM Carmen Mark RN Active documented as of this encounter Mental Status * Because of a physical, mental, or emotional condition, do you have serious difficulty concentrating, remembering, or making decisions? Answer Entry Date Author Status No 04/21/2022 5:06 PM Carmen Mark RN Active documented in this encounter Plan of Treatment Not on file documented as of this encounter Goals Goal Patient Goal Type Associated Problems Recent Progress Patient-Stated? Author Safety Patient/family will have appropriate support at home upon discharge General No Shaylee Blas LSW documented as of this encounter Visit Diagnoses Not on filedocumented in this encounter Care Teams Presentation Designer Relationship Specialty Start Date End Date Stefan Delgado MD [address] [place] [phone] PCP - General FAMILY PRACTICE 10/31/21 Neal Knapp DO [address] [facility] [address] [place] [address] INTERNAL MEDICINE 10/31/21 documented as of this encounter
--- OUTSIDE RECORDS SUMMARY | 2025-03-07 14:48 | XMS_ITS | Patient Health Record ---
Author Organization [facility] Address [address] [place] [address] Care Team Providers Care Splitter Hand Name Role Phone Danny MCKINNEY, Stefan Primary Care Provider Girish Shah Unavailable [phone] Robert Jacobo Unavailable [phone] Allergies No Known Allergies Reason For Referral No Information Medications Medication SIG (Take, Route, Frequency, Duration) Notes Start Date End Date Status Fluticasone-Salmeterol 232-14 MCG/ACT INHALE 1 PUFF BY MOUTH TWICE DAILY. RINSE MOUTH AND SPIT AFTER EACH USE. Inhalation; Duration: 30 Days Active Quviviq 25 MG 1 tablet within 30 minutes of bedtime Orally Once a day; Duration: 30 days 03/02/2025 05/31/2025 Active buPROPion HCl ER (XL) 150 MG 1 tablet every morning Oral Once a day; Duration: 30 days Active Zolpidem Tartrate 10 MG 1 tablet at bedtime as needed Orally Once a day; Duration: 30 days 02/22/2025 06/22/2025 Active DayVigo 10 MG 1 tablet at bedtime Orally Once a day; Duration: 30 days 02/17/2025 06/16/2025 Active Metoprolol Succinate ER 25 MG TAKE 1 TABLET BY MOUTH ONCE DAILY Oral; Duration: 90 Days Active Sertraline HCl 100 MG 2 tablet Oral Once a day; Duration: 30 days Active lamoTRIgine 100 MG TAKE 1 TABLET BY MOUTH EVERY MORNING AND 1/2 TABLET EVERY EVENING FOR 30 DAYS; Duration: 30 Active lamoTRIgine 100 MG 1.5 tablet Orally see sign; Duration: 30 days take 1 tablet every morning and 0.5 tablet every evening Active Belsomra 20 MG 1 tablet at bedtime Orally Once a day; Duration: 30 days 02/16/2025 05/17/2025 Active Atorvastatin Calcium 20 MG TAKE 1 TABLET BY MOUTH ONCE DAILY Oral; Duration: 90 Days 272.2,Unavaila ble Active QUEtiapine Fumarate 25 MG 1 tablet at bedtime Oral Once a day; Duration: 90 days Active Social History Tobacco Use: Social History Observation Description Date Details (start date - stop date) Former Smoker 08/10/1981 - 06/24/2015 Sex Assigned At : Social History Observation Description Sex Assigned At Female Tobacco Control (Standard) Question Answer Notes When did you start smoking? 08/10/1981 When did you stop smoking? 06/24/2015 How long has it been since you last smoked? Grea ter than 10 years Tobacco use: Former smoker Problems Problem Type SNOMED Code ICD Code Onset Dates Problem Status W/U Status Risk Notes Problem Major depression, single episode (00272539) Major depressive disorder, single episode, unspecified (F32.9) Active confirmed Problem Severe recurrent major depression without psychotic features (23269011) Major depressive disorder, recurrent severe without psychotic features (F33.2) Active confirmed Problem Generalized anxiety disorder (F41.1) Active confirmed Problem Insomnia disorder related to another mental disorder (37744863) Insomnia due to other mental disorder (F51.05) Active confirmed Vital Signs Heart Rate 63 /min 02/16/2025 Height-cm 175.26 cm 02/16/2025 Blood pressure diastolic 75 mm Hg 02/16/2025 Weight-kg 110.22 kg 02/16/2025 Height 69.00 in 02/16/2025 Blood pressure systolic 129 mm Hg 02/16/2025 Weight 243 lbs 02/16/2025 BMI 35.88 kg/m2 02/16/2025 Encounters Encounter Location Date Provider Diagnosis [facility] [address] [place] [address] 03/15/2024 Girish Lewis Insomnia due to othe r mental disorder F51.05 ; Major depressive disorder, recurrent severe without psychotic features F33.2 and Generalized anxiety disorder F41.1 [facility] [address] [place] [address] 04/14/2024 Girish Lewis Insomnia due to othe r mental disorder F51.05 ; Major depressive disorder, recurrent severe without psychotic features F33.2 and Generalized anxiety disorder F41.1 [facility], [facility] [address] [place] [address] 05/12/2024 Girish Lewis Insomnia due to othe r mental disorder F51.05 ; Major depressive disorder, recurrent severe without psychotic features F33.2 and Generalized anxiety disorder F41.1 [facility], [facility] [address] [place] [address] 06/09/2024 Robert Jacobo Major depressive disorder, recurrent severe without psychotic features F33.2 and Generalized anxiety disorder F41.1 [facility], [facility] [address] [place] [address] 06/09/2024 Girish Lewis Insomnia due to othe r mental disorder F51.05 ; Major depressive disorder, recurrent severe without psychotic features F33.2 and Generalized anxiety disorder F41.1 [facility], [facility] [address] [place] [address] 07/19/2024 Robert Jacobo Major depressive disorder, recurrent severe without psychotic features F33.2 and Generalized anxiety disorder F41.1 [facility], [facility] [address] [place] [address] 07/19/2024 Girish Lewis Insomnia due to othe r mental disorder F51.05 ; Major depressive disorder, recurrent severe without psychotic features F33.2 and Generalized anxiety disorder F41.1 [facility], [facility] [address] [place] [address] 10/13/2024 Robert Jacobo Major depressive disorder, recurrent severe without psychotic features F33.2 and Generalized anxiety disorder F41.1 [facility], [facility] [address] [place] [address] 10/13/2024 Girish Lewis Insomnia due to othe r mental disorder F51.05 ; Generalized anxiety disorder F41.1 and Major depressive disorder, recurrent severe without psychotic features F33.2 [facility], [facility] [address] [place] [address] 12/08/2024 Robert Jacobo Encounter for screening for depression Z13.31 ; Major depressive disorder, recurrent severe without psychotic features F33.2 and Generalized anxiety disorder F41.1 [facility], [facility] [address] [place] [address] 12/08/2024 Girish Lewis Encounter for screening for depression Z13.31 ; Major depressive disorder, recurrent severe without psychotic features F33.2 ; Generalized anxiety disorder F41.1 ; Encounter for screening for cardiovascular disorders Z13.6 and Insomnia due to other mental disorder F51.05 [facility], [facility] [address] [place] [address] 02/16/2025 oRbert Jacobo Major depressive disorder, recurrent severe without psychotic features F33.2 and Generalized anxiety disorder F41.1 [facility], [facility] [address] [place] [address] 02/16/2025 Giirsh Angelesa Major depressive disorder, recurrent severe without psychotic features F33.2 ; Generalized anxiety disorder F41.1 and Insomnia due to other mental disorder F51.05 [facility], [facility] [address] [place] [address] 04/14/2024 Girish Lewis [facility], [facility] [address] [place] [address] 05/11/2024 iGrish Mcadamsoza [facility], [facility] [address] [place] [address] 05/24/2024 [facility] [address] [place] [address] 09/21/2024 Girish Lewis Insomnia due to othe r mental disorder F51.05 [facility], [facility] [address] [place] [address] 10/12/2024 Girish Lewis [facility], [facility] [address] [place] [address] 02/22/2025 Girish Lewis [facility], [facility] [address] [place] [address] 03/02/2025 Girish Lewis Insomnia due to othe r mental disorder F51.05 [facility], [facility] [address] [place] [address] 08/25/2024 [facility] [address] [place] [address] 08/25/2024 Girish Lewis Insomnia due to othe r mental disorder F51.05 [facility] [address] [place] [address] 01/12/2025 Girish Lewis Major depressive disorder, recurrent severe without psychotic features F33.2 [facility] [address] [place] [address] 01/18/2025 Girish Lewis Generalized anxiety disorder F41.1 [facility] [address] [place] [address] 01/24/2025 Girish Lewis Insomnia due to othe r mental disorder F51.05 [facility] [address] [place] [address] 01/31/2025 Girish Lewis Major depressive disorder, recurrent severe without psychotic features F33.2 [facility] [address] [facility] [address] [place] [address] 01/31/2025 Girish Lewis [facility] [address] [place] [address] 02/17/2025 Girish Lewis Insomnia due to othe r mental disorder F51.05 [facility] [address] [facility] [address] [place] [address] 02/21/2025 Girish Lewis Insomnia due to othe r mental disorder F51.05 [facility] [address] [address] 03/02/2025 Girish Lewis Assessments Encounter Date Diagnosis (ICD Code) Assessment Notes Treatment Notes Treatment Clinical Notes Section Notes 02/17/2025 Insomnia due to other mental disorder (ICD-10 - F51.05) 03/02/2025 Insomnia due to other mental disorder (ICD-10 - F51.05) 02/21/2025 Insomnia due to other mental disorder (ICD-10 - F51.05) 04/14/2024 Insomnia due to other mental disorder (ICD-10 - F51.05) zolpidem 10mg hs prn 1. Insomnia: - Patient reports difficulty sleeping despite taking quetiapine 12.5 mg and zolpidem. Plan: - Continue quetiapine 12.5 mg and zolpidem as prescribed. - Reassess sleep quality in one month. 2. Irritability and Anxiety: - Patient reports improvement in irritability but still experiences anxiety. Plan: - Increase lamotrigine to 150 mg daily (100 mg in the morning and 50 mg in the evening). - Reassess anxiety and irritability in one month. 3. Depression: - Patient reports occasional feelings of sadness lasting no more than a couple of days. Plan: - Continue sertraline 100 mg daily. - Monitor for any changes in mood or severity of depressive symptoms. 4. Medication management: - Bupropion 300 mg daily: Continue at current dose and monitor for any changes in anxiety levels. - Lamotrigine: Increase to 150 mg daily (100 mg in the morning and 50 mg in the evening). - Quetiapine 12.5 mg: Continue at current dose for sleep. - Sertraline 100 mg: Continue at current dose for depression. - Zolpidem: Continue at current dose for insomnia. 5. Counseling: - Patient expressed interest in speaking with a counselor. Plan: - Refer patient to available counselor and schedule an appointment on the same day as the next follow-up visit. 6. Follow-up: - Schedule a follow-up appointment in one month to reassess patient's symptoms and medication effectiveness. 12/08/2024 Encounter for screening for depression (ICD-10 - Z13.31) 01/12/2025 Major depressive disorder, recurrent severe without psychotic features (ICD-10 - F33.2) 01/18/2025 Generalized anxiety disorder (ICD-10 - F41.1) 01/24/2025 Insomnia due to other mental disorder (ICD-10 - F51.05) 01/31/2025 Major depressive disorder, recurrent severe without psychotic features (ICD-10 - F33.2) 02/16/2025 Major depressive disorder, recurrent severe without psychotic features (ICD-10 - F33.2) Lianna Wiseman is a 59 year old female seen today for initial assessment to start individual psychotherapy. Has seen Girish Lewis for medication therapy for the past year and half. Hx of depression and anxiety since high school if not longer. Believes they areequal in severity. One psych admission around 1994 reported by client. No prior suicide attempts but hx positive for suicidal ideations. When asked what she worries the most about client stated, disappointing and letting people down, making mistakes, life in general and her family. Client born in [place], [place] and grew up in [place], [place]. Described childhood as good over all but always felt like the 2nd wheel behind older brother and then the 3rd wheel after the of younger borther. Noted that her father favored her brothers over her. Added that mother was kristin best friend. Client has been for 38 years and has a 38 year old daughter who she has a strained relationshi with. 02/16/2025 Generalized anxiety disorder (ICD-10 - F41.1) Lianna Wiseman is a 59 year old female seen today for initial assessment to start individual psychotherapy. Has seen Girish Lewis for medication therapy for the past year and half. Hx of depression and anxiety since high school if not longer. Believes they areequal in severity. One psych admission around 1994 reported by client. No prior suicide attempts but hx positive for suicidal ideations. When asked what she worries the most about client stated, disappointing and letting people down, making mistakes, life in general and her family. Client born in [place], [place] and grew up in [place], [place]. Described childhood as good over all but always felt like the 2nd wheel behind older brother and then the 3rd wheel after the of younger borther. Noted that her father favored her brothers over her. Added that mother was kristin best friend. Client has been for 38 years and has a 38 year old daughter who she has a strained [facility]. 02/16/2025 Major depressive disorder, recurrent severe without psychotic features (ICD-10 - F33.2) monitor for rash Plasma concentrations of quetiapine may be decreased by lamotrigine 03/15/2024 Insomnia due to other mental disorder (ICD-10 - F51.05) trying to simplify rx regimen 1. Major Depressive Disorder: - Patient reports some improvement in irritability but still experiences it. - Plan: Increase lamotrigine to 100 mg daily. Continue bupropion 300 mg daily. Monitor patient's response to medication changes. 2. Insomnia: - Patient reports no change in sleep quality, falls asleep quickly but does not stay asleep. - Plan: Continue zolpidem 10 mg at bedtime. Reassess sleep quality at the next visit. 3. Generalized Anxiety Disorder: - Patient reports feeling anxious and restless. - Plan: Continue sertraline 100 mg daily. Monitor patient's response to medication. 4. Bipolar Disorder: - Patient denies experiencing sheyla or hypomania symptoms lately. - Plan: Continue monitoring patient's mood and adjust medications as needed. 5. Medication adjustment: - Patient is currently on quetiapine 50 mg daily. - Plan: Decrease quetiapine to 25 mg daily with the goal of potentially discontinuing Seroquel in the future. Monitor for any changes in mood or sleep. 6. Shakiness: - Patient reports shakiness, but believes it is due to anxiousness. - Plan: Monitor patient's shakiness and reassess at the next visit to determine if it is a medication side effect or related to anxiety. 7. Counseling: - Patient expresses interest in counseling. - Plan: Schedule patient for counseling at the same location as their medical appointments. Reassess patient's progress in therapy at the next visit. Follow-up in one month to monitor patient's response to medication changes and progress in counseling. 05/12/2024 Insomnia due to other mental disorder (ICD-10 - F51.05) 1. Insomnia: - Patient reports difficulty staying asleep, waking up multiple times during the night. Plan: - Discontinue zolpidem (Ambien). - Start eszopiclone (Lunesta) for sleep maintenance insomnia. - Follow up in one month to assess the effectiveness of Lunesta. 2. Depression: - Patient reports feeling sad or down, especially when dealing with family issues. Plan: - Increase sertraline dosage to 150 mg daily. - Decrease bupropion dosage to 150 mg daily to reduce potential jitteriness and anxiety. - Continue lamotrigine at 100 mg in the morning and 50 mg in the evening. - Follow up in one month to assess the effectiveness of medication adjustments. 3. Anxiety: - Patient reports feeling anxious or nervous, particularly in crowded places and when dealing with family members. Plan: - Increase sertraline dosage to 150 mg daily to alleviate anxiety. - Decrease bupropion dosage to 150 mg daily to reduce potential jitteriness and anxiety. - Follow up in one month to assess the effectiveness of medication adjustments. 4. Attention and Concentration: - Patient reports difficulty paying attention and concentrating, unable to read books, only short stories with grandkids. Plan: - Monitor patient's attention and concentration during follow-up visits. 5. Irritability: - Patient reports reduced irritability since starting lamotrigine. Plan: - Continue lamotrigine at 100 mg in the morning and 50 mg in the evening. - Follow up in one month to monitor progress. 6. Counseling: - Patient's appointment was rescheduled due to counselor's illness. Plan: - Encourage patient to attend rescheduled counseling appointment and discuss the benefits of therapy in conjunction with medication management. Follow-up: - Schedule a follow-up appointment in one month to assess the effectiveness of medication adjustments and overall progress. 06/09/2024 Major depressive disorder, recurrent severe without psychotic features (ICD-10 - F33.2) Lianna Wiseman is a 59 year old female seen today for initial assessment to start individual psychotherapy. Has seen Girish Lewis for medication therapy for the past year and half. Hx of depression and anxiety since high school if not longer. Believes they areequal in severity. One psych admission around 1994 reported by client. No prior suicide attempts but hx positive for suicidal ideations. When asked what she worries the most about client stated, disappointing and letting people down, making mistakes, life in general and her family. Client born in [place] and grew up in [place], [place]. Described childhood as good over all but always felt like the 2nd wheel behind older brother and then the 3rd wheel after the of younger borther. Noted that her father favored her brothers over her. Added that mother was kristin best friend. Client has been for 38 years and has a 38 year old daughter who she has a strained relationshi with. 06/09/2024 Generalized anxiety disorder (ICD-10 - F41.1) Lianna Wiseman is a 59 year old female seen today for initial assessment to start individual psychotherapy. Has seen Girish Lewis for medication therapy for the past year and half. Hx of depression and anxiety since high school if not longer. Believes they areequal in severity. One psych admission around 1994 reported by client. No prior suicide attempts but hx positive for suicidal ideations. When asked what she worries the most about client stated, disappointing and letting people down, making mistakes, life in general and her family. Client born in [place] and grew up in [place], [place]. Described childhood as good over all but always felt like the 2nd wheel behind older brother and then the 3rd wheel after the of younger borther. Noted that her father favored her brothers over her. Added that mother was kristin best friend. Client has been for 38 years and has a 38 year old daughter who she has a strained relationshi with. 06/09/2024 Insomnia due to other mental disorder (ICD-10 - F51.05) 1. Anxiety: - Patient reports an increase in anxiety due to her father's recent diagnosis of dementia and challenges associated with his care. - Sertraline was previously increased, and the patient acknowledges some improvement but still experiences situational anxiety. Plan: - Continue Sertraline 150 mg for anxiety management. - Encourage the patient to seek additional support and resources for her father's care to alleviate some of the burden. - Follow up in one month to assess anxiety levels and make adjustments to treatment if necessary. 2. Insomnia: - Patient reports difficulty staying asleep with Ambien and difficulty falling asleep with Lunesta. - Insurance now covers Zolpidem ER 12.5 mg. Plan: - Discontinue Lunesta and Ambien. - Prescribe Zolpidem ER 12.5 mg at bedtime for insomnia. - Follow up in one month to evaluate the effectiveness of Zolpidem ER and address any sleep concerns. 3. Depression: - Patient reports an improvement in mood but still faces challenges due to her father's situation. Plan: - Continue bupropion XL 150 mg for depression management. - Monitor the patient's mood during follow-up visits and adjust treatment as needed. 4. Bipolar Disorder: - Patient is currently on Quetiapine 12.5 mg (half of 25 mg) and Lamotrigine 100 mg in the morning and 50 mg in the evening. Plan: - Continue the current medication regimen for bipolar disorder management. - Monitor the patient's mood and symptoms during follow-up visits and adjust treatment as needed. 5. Caregiver Stress: - Patient is experiencing significant stress due to her father's dementia and the challenges associated with his care. Plan: - Encourage the patient to seek additional support and resources for her father's care, such as hospice and home health care. - Remind the patient of the importance of self-care and taking regular breaks to prevent burnout. - Monitor the patient's mental health during follow-up visits and provide support as needed. Follow-up in one month to assess sleep, anxiety, and overall mental health. 07/19/2024 Major depressive disorder, recurrent severe without psychotic features (ICD-10 - F33.2) 07/19/2024 Generalized anxiety disorder (ICD-10 - F41.1) 07/19/2024 Insomnia due to other mental disorder (ICD-10 - F51.05) 1. Insomnia - Patient reports being able to obtain Zolpidem ER and is currently taking it as prescribed. However, sleep has been affected due to recent grief from the passing of her father. Plan: - Continue Zolpidem ER as prescribed - Encourage patient to maintain a regular sleep schedule and practice good sleep hygiene - Monitor sleep quality and adjust treatment as needed in future visits 2. Grief - Patient is experiencing grief due to the recent passing of her father. She has seen a counselor and reports that the sessions are helpful. Plan: - Encourage patient to continue attending counseling sessions - Monitor patient's emotional well-being and adjust treatment as needed in future visits 3. Depression - Patient is currently on Bupropion 150 mg, Sertraline 150 mg, and Quetiapine (half tablet at bedtime). She reports being able to function and recently went on a trip with her family. Plan: - Continue current medications as prescribed - Monitor patient's mood and adjust treatment as needed in future visits - Patient is currently on Lamotrigine (1.5 tablets daily; 1 tablet in the morning and half in the evening). She reports being stable on this medication. Plan: - Continue Lamotrigine as prescribed - Monitor patient's mood and adjust treatment as needed in future visits Follow-up: Schedule a follow-up appointment in 2 months. Encourage patient to call if any issues arise before the next appointment. 08/25/2024 Insomnia due to other mental disorder (ICD-10 - F51.05) 09/21/2024 Insomnia due to other mental disorder (ICD-10 - F51.05) 10/13/2024 Major depressive disorder, recurrent severe without psychotic features (ICD-10 - F33.2) Lianna Wiseman is a 59 year old female seen today for initial assessment to start individual psychotherapy. Has seen Girish Lewis for medication therapy for the past year and half. Hx of depression and anxiety since high school if not longer. Believes they areequal in severity. One psych admission around 1994 reported by client. No prior suicide attempts but hx positive for suicidal ideations. When asked what she worries the most about client stated, disappointing and letting people down, making mistakes, life in general and her family. Client born in [place], [place] and grew up in [place], [place]. Described childhood as good over all but always felt like the 2nd wheel behind older brother and then the 3rd wheel after the of younger borther. Noted that her father favored her brothers over her. Added that mother was kristin best friend. Client has been for 38 years and has a 38 year old daughter who she has a strained relationshi with. 10/13/2024 Generalized anxiety disorder (ICD-10 - F41.1) Lianna Wiseman is a 59 year old female seen today for initial assessment to start individual psychotherapy. Has seen Girish Lewis for medication therapy for the past year and half. Hx of depression and anxiety since high school if not longer. Believes they areequal in severity. One psych admission around 1994 reported by client. No prior suicide attempts but hx positive for suicidal ideations. When asked what she worries the most about client stated, disappointing and letting people down, making mistakes, life in general and her family. Client born in [place], [place] and grew up in [place], [place]. Described childhood as good over all but always felt like the 2nd wheel behind older brother and then the 3rd wheel after the of younger borther. Noted that her father favored her brothers over her. Added that mother was kristin best friend. Client has been for 38 years and has a 38 year old daughter who she has a strained relationshi with. 10/13/2024 Generalized anxiety disorder (ICD-10 - F41.1) 10/13/2024 Insomnia due to other mental disorder (ICD-10 - F51.05) 12/08/2024 Major depressive disorder, recurrent severe without psychotic features (ICD-10 - F33.2) Lianna Wiseman is a 59 year old female seen today for initial assessment to start individual psychotherapy. Has seen Girishalessio Lewis for medication therapy for the past year and half. Hx of depression and anxiety since high school if not longer. Believes they areequal in severity. One psych admission around 1994 reported by client. No prior suicide attempts but hx positive for suicidal ideations. When asked what she worries the most about client stated, disappointing and letting people down, making mistakes, life in general and her family. Client born in [place] and grew up in [place]. Described childhood as good over all but always felt like the 2nd wheel behind older brother and then the 3rd wheel after the of younger borther. Noted that her father favored her brothers over her. Added that mother was kristin best friend. Client has been for 38 years and has a 38 year old daughter who she has a strained [facility] with. 12/08/2024 Encounter for screening for depression (ICD-10 - Z13.31) Lianna Wiseman is a 59 year old female seen today for initial assessment to start individual psychotherapy. Has seen Girishalessio Lewis for medication therapy for the past year and half. Hx of depression and anxiety since high school if not longer. Believes they areequal in severity. One psych admission around 1994 reported by client. No prior suicide attempts but hx positive for suicidal ideations. When asked what she worries the most about client stated, disappointing and letting people down, making mistakes, life in general and her family. Client born in [place] and grew up in [place]. Described childhood as good over all but always felt like the 2nd wheel behind older brother and then the 3rd wheel after the of younger borther. Noted that her father favored her brothers over her. Added that mother was kristin best friend. Client has been for 38 years and has a 38 year old daughter who she has a strained [facility] with. 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 Has seen Girish Lewis for medication therapy for the past year and half. Hx of depression and anxiety since high school if not longer. Believes they areequal in severity. One psych admission around 1994 reported by client. No prior suicide attempts but hx positive for suicidal ideations. When asked what she worries the most about client stated, disappointing and letting people down, making mistakes, life in general and her family. Client born in [place] and grew up in [place], [place]. Described childhood as good over all but always felt like the 2nd wheel behind older brother and then the 3rd wheel after the of younger borther. Noted that her father favored her brothers over her. Added that mother was kristin best friend. Client has been for 38 years and has a 38 year old daughter who she has a strained relationshi with. 10/13/2024 Major depressive disorder, recurrent severe without psychotic features (ICD-10 - F33.2) monitor for rash Plasma concentrations of quetiapine may be decreased by lamotrigine 07/19/2024 Major depressive disorder, recurrent severe without psychotic features (ICD-10 - F33.2) monitor for rash Plasma concentrations of quetiapine may be decreased by lamotrigine 1. Insomnia - Patient reports being able to obtain Zolpidem ER and is currently taking it as prescribed. However, sleep has been affected due to recent grief from the passing of her father. Plan: - Continue Zolpidem ER as prescribed - Encourage patient to maintain a regular sleep schedule and practice good sleep hygiene - Monitor sleep quality and adjust treatment as needed in future visits 2. Grief - Patient is experiencing grief due to the recent passing of her father. She has seen a counselor and reports that the sessions are helpful. Plan: - Encourage patient to continue attending counseling sessions - Monitor patient's emotional well-being and adjust treatment as needed in future visits 3. Depression - Patient is currently on Bupropion 150 mg, Sertraline 150 mg, and Quetiapine (half tablet at bedtime). She reports being able to function and recently went on a trip with her family. Plan: - Continue current medications as prescribed - Monitor patient's mood and adjust treatment as needed in future visits - Patient is currently on Lamotrigine (1.5 tablets daily; 1 tablet in the morning and half in the evening). She reports being stable on this medication. Plan: - Continue Lamotrigine as prescribed - Monitor patient's mood and adjust treatment as needed in future visits Follow-up: Schedule a follow-up appointment in 2 months. Encourage patient to call if any issues arise before the next appointment. 03/15/2024 Major depressive disorder, recurrent severe without psychotic features (ICD-10 - F33.2) monitor for rash Plasma concentrations of quetiapine may be decreased by lamotrigine trying to simplify rx regimen 1. Major Depressive Disorder: - Patient reports some improvement in irritability but still experiences it. - Plan: Increase lamotrigine to 100 mg daily. Continue bupropion 300 mg daily. Monitor patient's response to medication changes. 2. Insomnia: - Patient reports no change in sleep quality, falls asleep quickly but does not stay asleep. - Plan: Continue zolpidem 10 mg at bedtime. Reassess sleep quality at the next visit. 3. Generalized Anxiety Disorder: - Patient reports feeling anxious and restless. - Plan: Continue sertraline 100 mg daily. Monitor patient's response to medication. 4. Bipolar Disorder: - Patient denies experiencing sheyla or hypomania symptoms lately. - Plan: Continue monitoring patient's mood and adjust medications as needed. 5. Medication adjustment: - Patient is currently on quetiapine 50 mg daily. - Plan: Decrease quetiapine to 25 mg daily with the goal of potentially discontinuing Seroquel in the future. Monitor for any changes in mood or sleep. 6. Shakiness: - Patient reports shakiness, but believes it is due to anxiousness. - Plan: Monitor patient's shakiness and reassess at the next visit to determine if it is a medication side effect or related to anxiety. 7. Counseling: - Patient expresses interest in counseling. - Plan: Schedule patient for counseling at the same location as their medical appointments. Reassess patient's progress in therapy at the next visit. Follow-up in one month to monitor patient's response to medication changes and progress in counseling. 06/09/2024 Major depressive disorder, recurrent severe without psychotic features (ICD-10 - F33.2) monitor for rash Plasma concentrations of quetiapine may be decreased by lamotrigine 1. Anxiety: - Patient reports an increase in anxiety due to her father's recent diagnosis of dementia and challenges associated with his care. - Sertraline was previously increased, and the patient acknowledges some improvement but still experiences situational anxiety. Plan: - Continue Sertraline 150 mg for anxiety management. - Encourage the patient to seek additional support and resources for her father's care to alleviate some of the burden. - Follow up in one month to assess anxiety levels and make adjustments to treatment if necessary. 2. Insomnia: - Patient reports difficulty staying asleep with Ambien and difficulty falling asleep with Lunesta. - Insurance now covers Zolpidem ER 12.5 mg. Plan: - Discontinue Lunesta and Ambien. - Prescribe Zolpidem ER 12.5 mg at bedtime for insomnia. - Follow up in one month to evaluate the effectiveness of Zolpidem ER and address any sleep concerns. 3. Depression: - Patient reports an improvement in mood but still faces challenges due to her father's situation. Plan: - Continue bupropion XL 150 mg for depression management. - Monitor the patient's mood during follow-up visits and adjust treatment as needed. 4. Bipolar Disorder: - Patient is currently on Quetiapine 12.5 mg (half of 25 mg) and Lamotrigine 100 mg in the morning and 50 mg in the evening. Plan: - Continue the current medication regimen for bipolar disorder management. - Monitor the patient's mood and symptoms during follow-up visits and adjust treatment as needed. 5. Caregiver Stress: - Patient is experiencing significant stress due to her father's dementia and the challenges associated with his care. Plan: - Encourage the patient to seek additional support and resources for her father's care, such as hospice and home health care. - Remind the patient of the importance of self-care and taking regular breaks to prevent burnout. - Monitor the patient's mental health during follow-up visits and provide support as needed. Follow-up in one month to assess sleep, anxiety, and overall mental health. 04/14/2024 Major depressive disorder, recurrent severe without psychotic features (ICD-10 - F33.2) monitor for rash Plasma concentrations of quetiapine may be decreased by lamotrigine 1. Insomnia: - Patient reports difficulty sleeping despite taking quetiapine 12.5 mg and zolpidem. Plan: - Continue quetiapine 12.5 mg and zolpidem as prescribed. - Reassess sleep quality in one month. 2. Irritability and Anxiety: - Patient reports improvement in irritability but still experiences anxiety. Plan: - Increase lamotrigine to 150 mg daily (100 mg in the morning and 50 mg in the evening). - Reassess anxiety and irritability in one month. 3. Depression: - Patient reports occasional feelings of sadness lasting no more than a couple of days. Plan: - Continue sertraline 100 mg daily. - Monitor for any changes in mood or severity of depressive symptoms. 4. Medication management: - Bupropion 300 mg daily: Continue at current dose and monitor for any changes in anxiety levels. - Lamotrigine: Increase to 150 mg daily (100 mg in the morning and 50 mg in the evening). - Quetiapine 12.5 mg: Continue at current dose for sleep. - Sertraline 100 mg: Continue at current dose for depression. - Zolpidem: Continue at current dose for insomnia. 5. Counseling: - Patient expressed interest in speaking with a counselor. Plan: - Refer patient to available counselor and schedule an appointment on the same day as the next follow-up visit. 6. Follow-up: - Schedule a follow-up appointment in one month to reassess patient's symptoms and medication effectiveness. 02/16/2025 Generalized anxiety disorder (ICD-10 - F41.1) 05/12/2024 Major depressive disorder, recurrent severe without psychotic features (ICD-10 - F33.2) monitor for rash Plasma concentrations of quetiapine may be decreased by lamotrigine 1. Insomnia: - Patient reports difficulty staying asleep, waking up multiple times during the night. Plan: - Discontinue zolpidem (Ambien). - Start eszopiclone (Lunesta) for sleep maintenance insomnia. - Follow up in one month to assess the effectiveness of Lunesta. 2. Depression: - Patient reports feeling sad or down, especially when dealing with family issues. Plan: - Increase sertraline dosage to 150 mg daily. - Decrease bupropion dosage to 150 mg daily to reduce potential jitteriness and anxiety. - Continue lamotrigine at 100 mg in the morning and 50 mg in the evening. - Follow up in one month to assess the effectiveness of medication adjustments. 3. Anxiety: - Patient reports feeling anxious or nervous, particularly in crowded places and when dealing with family members. Plan: - Increase sertraline dosage to 150 mg daily to alleviate anxiety. - Decrease bupropion dosage to 150 mg daily to reduce potential jitteriness and anxiety. - Follow up in one month to assess the effectiveness of medication adjustments. 4. Attention and Concentration: - Patient reports difficulty paying attention and concentrating, unable to read books, only short stories with grandkids. Plan: - Monitor patient's attention and concentration during follow-up visits. 5. Irritability: - Patient reports reduced irritability since starting lamotrigine. Plan: - Continue lamotrigine at 100 mg in the morning and 50 mg in the evening. - Follow up in one month to monitor progress. 6. Counseling: - Patient's appointment was rescheduled due to counselor's illness. Plan: - Encourage patient to attend rescheduled counseling appointment and discuss the benefits of therapy in conjunction with medication management. Follow-up: - Schedule a follow-up appointment in one month to assess the effectiveness of medication adjustments and overall progress. 05/12/2024 Generalized anxiety disorder (ICD-10 - F41.1) 1. Insomnia: - Patient reports difficulty staying asleep, waking up multiple times during the night. Plan: - Discontinue zolpidem (Ambien). - Start eszopiclone (Lunesta) for sleep maintenance insomnia. - Follow up in one month to assess the effectiveness of Lunesta. 2. Depression: - Patient reports feeling sad or down, especially when dealing with family issues. Plan: - Increase sertraline dosage to 150 mg daily. - Decrease bupropion dosage to 150 mg daily to reduce potential jitteriness and anxiety. - Continue lamotrigine at 100 mg in the morning and 50 mg in the evening. - Follow up in one month to assess the effectiveness of medication adjustments. 3. Anxiety: - Patient reports feeling anxious or nervous, particularly in crowded places and when dealing with family members. Plan: - Increase sertraline dosage to 150 mg daily to alleviate anxiety. - Decrease bupropion dosage to 150 mg daily to reduce potential jitteriness and anxiety. - Follow up in one month to assess the effectiveness of medication adjustments. 4. Attention and Concentration: - Patient reports difficulty paying attention and concentrating, unable to read books, only short stories with grandkids. Plan: - Monitor patient's attention and concentration during follow-up visits. 5. Irritability: - Patient reports reduced irritability since starting lamotrigine. Plan: - Continue lamotrigine at 100 mg in the morning and 50 mg in the evening. - Follow up in one month to monitor progress. 6. Counseling: - Patient's appointment was rescheduled due to counselor's illness. Plan: - Encourage patient to attend rescheduled counseling appointment and discuss the benefits of therapy in conjunction with medication management. Follow-up: - Schedule a follow-up appointment in one month to assess the effectiveness of medication adjustments and overall progress. 12/08/2024 Encounter for screening for cardiovascular disorders (ICD-10 - Z13.6) 02/16/2025 Insomnia due to other mental disorder (ICD-10 - F51.05) 04/14/2024 Generalized anxiety disorder (ICD-10 - F41.1) 1. Insomnia: - Patient reports difficulty sleeping despite taking quetiapine 12.5 mg and zolpidem. Plan: - Continue quetiapine 12.5 mg and zolpidem as prescribed. - Reassess sleep quality in one month. 2. Irritability and Anxiety: - Patient reports improvement in irritability but still experiences anxiety. Plan: - Increase lamotrigine to 150 mg daily (100 mg in the morning and 50 mg in the evening). - Reassess anxiety and irritability in one month. 3. Depression: - Patient reports occasional feelings of sadness lasting no more than a couple of days. Plan: - Continue sertraline 100 mg daily. - Monitor for any changes in mood or severity of depressive symptoms. 4. Medication management: - Bupropion 300 mg daily: Continue at current dose and monitor for any changes in anxiety levels. - Lamotrigine: Increase to 150 mg daily (100 mg in the morning and 50 mg in the evening). - Quetiapine 12.5 mg: Continue at current dose for sleep. - Sertraline 100 mg: Continue at current dose for depression. - Zolpidem: Continue at current dose for insomnia. 5. Counseling: - Patient expressed interest in speaking with a counselor. Plan: - Refer patient to available counselor and schedule an appointment on the same day as the next follow-up visit. 6. Follow-up: - Schedule a follow-up appointment in one month to reassess patient's symptoms and medication effectiveness. 06/09/2024 Generalized anxiety disorder (ICD-10 - F41.1) 1. Anxiety: - Patient reports an increase in anxiety due to her father's recent diagnosis of dementia and challenges associated with his care. - Sertraline was previously increased, and the patient acknowledges some improvement but still experiences situational anxiety. Plan: - Continue Sertraline 150 mg for anxiety management. - Encourage the patient to seek additional support and resources for her father's care to alleviate some of the burden. - Follow up in one month to assess anxiety levels and make adjustments to treatment if necessary. 2. Insomnia: - Patient reports difficulty staying asleep with Ambien and difficulty falling asleep with Lunesta. - Insurance now covers Zolpidem ER 12.5 mg. Plan: - Discontinue Lunesta and Ambien. - Prescribe Zolpidem ER 12.5 mg at bedtime for insomnia. - Follow up in one month to evaluate the effectiveness of Zolpidem ER and address any sleep concerns. 3. Depression: - Patient reports an improvement in mood but still faces challenges due to her father's situation. Plan: - Continue bupropion XL 150 mg for depression management. - Monitor the patient's mood during follow-up visits and adjust treatment as needed. 4. Bipolar Disorder: - Patient is currently on Quetiapine 12.5 mg (half of 25 mg) and Lamotrigine 100 mg in the morning and 50 mg in the evening. Plan: - Continue the current medication regimen for bipolar disorder management. - Monitor the patient's mood and symptoms during follow-up visits and adjust treatment as needed. 5. Caregiver Stress: - Patient is experiencing significant stress due to her father's dementia and the challenges associated with his care. Plan: - Encourage the patient to seek additional support and resources for her father's care, such as hospice and home health care. - Remind the patient of the importance of self-care and taking regular breaks to prevent burnout. - Monitor the patient's mental health during follow-up visits and provide support as needed. Follow-up in one month to assess sleep, anxiety, and overall mental health. 03/15/2024 Generalized anxiety disorder (ICD-10 - F41.1) trying to simplify rx regimen 1. Major Depressive Disorder: - Patient reports some improvement in irritability but still experiences it. - Plan: Increase lamotrigine to 100 mg daily. Continue bupropion 300 mg daily. Monitor patient's response to medication changes. 2. Insomnia: - Patient reports no change in sleep quality, falls asleep quickly but does not stay asleep. - Plan: Continue zolpidem 10 mg at bedtime. Reassess sleep quality at the next visit. 3. Generalized Anxiety Disorder: - Patient reports feeling anxious and restless. - Plan: Continue sertraline 100 mg daily. Monitor patient's response to medication. 4. Bipolar Disorder: - Patient denies experiencing sheyla or hypomania symptoms lately. - Plan: Continue monitoring patient's mood and adjust medications as needed. 5. Medication adjustment: - Patient is currently on quetiapine 50 mg daily. - Plan: Decrease quetiapine to 25 mg daily with the goal of potentially discontinuing Seroquel in the future. Monitor for any changes in mood or sleep. 6. Shakiness: - Patient reports shakiness, but believes it is due to anxiousness. - Plan: Monitor patient's shakiness and reassess at the next visit to determine if it is a medication side effect or related to anxiety. 7. Counseling: - Patient expresses interest in counseling. - Plan: Schedule patient for counseling at the same location as their medical appointments. Reassess patient's progress in therapy at the next visit. Follow-up in one month to monitor patient's response to medication changes and progress in counseling. 07/19/2024 Generalized anxiety disorder (ICD-10 - F41.1) 1. Insomnia - Patient reports being able to obtain Zolpidem ER and is currently taking it as prescribed. However, sleep has been affected due to recent grief from the passing of her father. Plan: - Continue Zolpidem ER as prescribed - Encourage patient to maintain a regular sleep schedule and practice good sleep hygiene - Monitor sleep quality and adjust treatment as needed in future visits 2. Grief - Patient is experiencing grief due to the recent passing of her father. She has seen a counselor and reports that the sessions are helpful. Plan: - Encourage patient to continue attending counseling sessions - Monitor patient's emotional well-being and adjust treatment as needed in future visits 3. Depression - Patient is currently on Bupropion 150 mg, Sertraline 150 mg, and Quetiapine (half tablet at bedtime). She reports being able to function and recently went on a trip with her family. Plan: - Continue current medications as prescribed - Monitor patient's mood and adjust treatment as needed in future visits - Patient is currently on Lamotrigine (1.5 tablets daily; 1 tablet in the morning and half in the evening). She reports being stable on this medication. Plan: - Continue Lamotrigine as prescribed - Monitor patient's mood and adjust treatment as needed in future visits Follow-up: Schedule a follow-up appointment in 2 months. Encourage patient to call if any issues arise before the next appointment. 12/08/2024 Insomnia due to other mental disorder (ICD-10 - F51.05) 07/19/2024 Other Client participated in individual psychotherapy([facility]) related to her hx of depression and anxiety. Based on today's session continued psychotherapy is recommended with no changes to treatment plan. Client presented to session well groomed and fully oriented with no risk of harm to self or others. Client verbal engaged and tearful through out session. Reported upon presentation that she been doing fine since last seen on 06.09.2024. Stated however that her 83 year old father the week before Thanksgi thus she and family did not celebrate . Added that she has had problems sleeping since father's , has been waking up every two hours. Noted that prior to father's she had been staying with and caring for him. Had been used to waking up every two hours due to caring for father. Client further spoke about of mother in 1994 and how she and mother were best friends. Client provided supportive therapy. Next session in four weeks. 10/13/2024 Other Clinical Notes : Client participated in individual psychotherapy(C BT/Supportive) related to her hx of depression and anxiety. Based on today's session continued psychotherapy is recommended with no changes to treatment plan. Client presented to session well groomed and fully oriented with no risk of harm to self or others and accompanied by . Client verbal engaged and tearful through out session. Reported upon presentation that she been doing okay since last seen on 07.19.2024. Added that she has had good and bad days but overall more good then bad. in agreement that she has been doing better with mood being more stable. Focus of session centered on helping client identify false and irrational thoughts and beliefs responsible for anxiety and depression. Client admitted that she has believed for as long as she can recall that she is responsible for the feelings and happiness of others. Moreover has been guilty of engaging in emotional reasoning. Client provided handout on strategies to over come over thinking. Next session in four weeks. Lianna Wiseman is a 59 year old female seen today for initial assessment to start individual psychotherapy. Has seen Girish Lewis for medication therapy for the past year and half. Hx of depression and anxiety since high school if not longer. Believes they areequal in severity. One psych admission around 1994 reported by client. No prior suicide attempts but hx positive for suicidal ideations. When asked what she worries the most about client stated, disappointing and letting people down, making mistakes, life in general and her family. Client born in [place], [place] and grew up in [place], [place]. Described childhood as good over all but always felt like the 2nd wheel behind older brother and then the 3rd wheel after the of younger borther. Noted that her father favored her brothers over her. Added that mother was kristin best friend. Client has been for 38 years and has a 38 year old daughter who she has a strained relationshi with. 10/13/2024 Other 1. Depression: - Patient reports feeling okay and is keeping busy with family and house-related activities. - Expresses some guilt regarding the inheritance of her father's house but is overall managing well. Plan: - Continue current medications: Bupropion XL 150 mg daily, Sertraline 150 mg daily, Lamotrigine 100 mg in the morning and 50 mg at bedtime, Quetiapine 12.5 mg at bedtime. - Encourage patient to continue engaging in activities and discuss any concerns with family members. 2. Anxiety: - Patient reports anxiety being low on the high side but manageable. - Worried about her brother's feelings regarding the inheritance situation. Plan: - Continue current medications: Sertraline 150 mg daily, Lamotrigine 100 mg in the morning and 50 mg at bedtime, Quetiapine 12.5 mg at bedtime. - Encourage open communication with her brother and consider therapy to address anxiety and worry. 3. Insomnia: - Patient reports a change in insurance led to a switch in Zolpidem medication. - Currently taking Zolpidem 10 mg and experiences 4-5 hours of solid sleep. Plan: - Continue Zolpidem 10 mg at bedtime. - Monitor sleep quality and consider adjusting medication if needed. 4. Weight loss: - Patient reports losing 40 pounds without changing eating habits, attributing weight loss to increased activity and walking. Plan: - Encourage patient to maintain a healthy lifestyle and monitor weight. - Consider further evaluation if weight loss continues or becomes concerning. 5. Hypertension: - Patient reports being taken off Losartan. Plan: - Update medication list to remove Losartan. - Monitor blood pressure and consider re-evaluating treatment if needed. Follow-up: - Schedule a follow-up appointment in 3 months to assess the patient's progress and medication effectiveness. - Provide refills for current medications. 12/08/2024 Other Client participated in individual psychotherapy(C BT/Supportive) related to her hx of depression and anxiety. Based on today's session continued psychotherapy is recommended with no changes to treatment plan. Client presented to session well groomed and fully oriented with no risk of harm to self or others. Client verbal and engaged through out session. Reported upon presentation that she been doing okay since last seen on 10.13.2024. Noted that he has been thinking a lot about previous session that he is not responsible for how others feel. Nor she is responsible for what others thinks or do. Stated that he had a couple of incidents where she was able to tell her self exactly that and it was helpful. Session accordingly continued to address client's irrational and faulty believes which have supported and fueled her anxiety and depression. Admitted that she also needs to learn to forgive self with regard to father's . Has wnated to believe that she should have treated father nicer while he was still alive. Further shared that she has a high need for certainty especially with regard to other people(daughter ). Client receptive to session feedback. Next session in four weeks. Lianna Wiseman is a 59 year old female seen today for initial assessment to start individual psychotherapy. Has seen iGrish Lewis for medication therapy for the past year and half. Hx of depression and anxiety since high school if not longer. Believes they areequal in severity. One psych admission around 1994 reported by client. No prior suicide attempts but hx positive for suicidal ideations. When asked what she worries the most about client stated, disappointing and letting people down, making mistakes, life in general and her family. Client born in [place], [place] and grew up in [place], [place]. Described childhood as good over all but always felt like the 2nd wheel behind older brother and then the 3rd wheel after the of younger borther. Noted that her father favored her brothers over her. Added that mother was kristin best friend. Client has been for 38 years and has a 38 year old daughter who she has a strained relationshi with. 12/08/2024 Radha Wiseman presents with ongoing depression, anxiety, and insomnia, currently managed with multiple psychiatric medications. Major Depressive Disorder Assessment: Patient reports intermittent depressive episodes occurring every 2-3 days, characterized by fatigue, sadness, crying, and irritability. These episodes are typically triggered by external factors. The patient maintains composure most of the time but continues to experience persistent guilt. Current medication regimen includes sertraline 150 mg daily and bupropion 150 mg every morning. Plan: - Continue sertraline 150 mg PO daily - Continue bupropion 150 mg PO every morning - Monitor frequency and intensity of depressive episodes - Encourage patient to identify and manage triggers for depressive episodes Generalized Anxiety Disorder Assessment: Patient experiences situational anxiety, particularly in crowded places. Anxiety is characterized by fear, constant worry, and catastrophic thinking. The patient reports feeling fine when at home or working in the yard, indicating that the anxiety is context-depende nt. Plan: - Continue current medication regimen - Encourage use of anxiety management techniques in anxiety-provoki ng situations - Consider cognitive-behav ioral therapy to address catastrophic thinking patterns Insomnia Assessment: Patient reports chronic insomnia lasting for years, with current sleep pattern of approximately 3-4 solid hours followed by intermittent sleep. Patient takes zolpidem for sleep initiation but experiences portal administrator awakening. Daytime napping is present. Current treatment includes zolpidem and quetiapine 12.5 mg at bedtime. Plan: - Increase quetiapine to 25 mg PO at bedtime - Continue zolpidem as prescribed - Educate patient on sleep hygiene practices - Monitor effectiveness of increased quetiapine dose on sleep maintenance Mood Stabilization Assessment: Patient is currently on lamotrigine for mood stabilization. No manic symptoms reported. Patient expresses worry about potential mood shifts when feeling happy. Plan: - Continue lamotrigine 100 mg PO in the morning and 50 mg PO at night - Monitor for any signs of mood instability or emergence of manic symptoms the note is transcribed using speech recognition software. It is a reflection of a visit with the patient. It might have some inaccuracy, including medication names and transcribing errors, though efforts have been made to correct them. 02/16/2025 Other Client participated in individual psychotherapy(C BT/Supportive) related to her hx of depression and anxiety. Based on today's session continued psychotherapy is recommended with no changes to treatment plan. Client presented to session well groomed and fully oriented with no risk of harm to self or others and accompanied by for support and source of imformation. Client verbal and engaged through out session. Reported upon presentation that she been doing good since last seen on 12.08.2024. Added that she and have been busy putting together her father's home that they have moved into. They have also been busy with two grandchildren. Further shared that she has done a better job of not letting how other people feel or behave bother her. Focus of session centered on client's faulty and irrational thinking regarding being out in public and worry of being judged. Conceded that she projects what she believes about about herself onto others(stranger s). Referenced father and not ever being able to please him or get his approval. Noted that father would never admit that he was wrong. Client more receptive to session feedback. Next session on four weeks. Lianna Wiseman is a 59 year old female seen today for initial assessment to start individual psychotherapy. Has seen Girish Lewis for medication therapy for the past year and half. Hx of depression and anxiety since high school if not longer. Believes they areequal in severity. One psych admission around 1994 reported by client. No prior suicide attempts but hx positive for suicidal ideations. When asked what she worries the most about client stated, disappointing and letting people down, making mistakes, life in general and her family. Client born in [place] and grew up in [place], [place]. Described childhood as good over all but always felt like the 2nd wheel behind older brother and then the 3rd wheel after the of younger borther. Noted that her father favored her brothers over her. Added that mother was kristin best friend. Client has been for 38 years and has a 38 year old daughter who she has a strained relationshi with. 02/16/2025 Other Lianna Wiseman, a patient with a history of sleep issues, anxiety, and depression, presents for follow-up reporting overall improvement in mood and anxiety but persistent sleep disturbances. Insomnia Assessment: Patient reports ongoing difficulty with sleep maintenance despite improvement in sleep onset with zolpidem. She wakes up during the night without a clear cause such as pain or bathroom needs. A home sleep study is planned to evaluate for potential sleep apnea, though a previous study after a cardiac event was negative. The patient's sleep issues have been longstanding and refractory to multiple medication trials. Plan: - Continue zolpidem at bedtime - Initiate Belsomra in addition to current regimen - Explained mechanism of action: quieting wakeful receptors to promote sleep maintenance - Discussed potential for more natural-feeling sleep compared to sedative effects of zolpidem - Informed patient of plan to potentially taper off zolpidem if Belsomra proves effective - Proceed with scheduled home sleep study - Follow up in 6 weeks to reassess sleep quality and review sleep study results Depression Assessment: Patient reports overall improvement in mood with current medication regimen. She denies feeling really sad or down in the dumps on a daily basis, though she does experience these feelings sometimes. Persistent feelings of guilt are noted, which are being addressed in therapy. Plan: - Continue sertraline 200 mg daily (100 mg in morning, 100 mg in evening) - Continue bupropion XL 150 mg in the morning - Continue quetiapine 25 mg at bedtime - Ongoing therapy to address feelings of guilt Anxiety Assessment: Patient reports improved management of anxiety symptoms. She denies significant impairment in daily activities or social functioning, indicating she is able to get stuff done and go places. Plan: - Continue current medication regimen as noted in depression management the note is transcribed using speech recognition software. It is a reflection of a visit with the patient. It might have some inaccuracy, including medication names and transcribing errors, though efforts have been made to correct them. 02/22/2025 Other Electronic Prio r Authorization was requested for DayVigo 10 MG Tablet. Provider can order medication once approval received. Plan Of Treatment Next Appt Details Provider Name:Robert kelly, 03/30/2025 01:00:00 PM, [address], [facility] [address], [place], [address], Provider Name:Girish horvath, 03/30/2025 02:30:00 PM, [address], [address], [place], [address], Insurance Providers Payer Name Payer Address Payer Phone Subscriber Number Group Number Insured Name Patient Relationship to Insured Coverage Start Date Coverage End Date [facility] [address] [place] [phone] [id number] LIANNA WISEMAN Self - patient is the insured Medical (General) History Medical History History ICD Code Problems: Generalized anxiety disorder 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
== END 2025-03-07 14:42 | disposition home or self-care (01) ==
LOC: CHSIMG 14:43
PROVIDERS: PCP Family Medicine; Visit Provider Physician Assistant
DX: I27.20 Pulmonary hypertension, unspecified (principal); I51.7 Cardiomegaly
CPT/HCPCS: 93306